=== PATIENT | female | born 1945 | race Caucasian/White ===

== ENCOUNTER 2016-03-23 07:01 | Day surgery (SDC) | payer MEDICARE, OTHER ==
[~2016-03-23] VITALS: Ht 162.6 cm; Wt 63.6 kg
[~2016-03-23 07:01] MED LIST: LACTATED RINGERS 1,000 ML IV SCH; SODIUM CHLORIDE FLUSH 3 ML SYR IV PRN
[2016-03-23 07:14] VITALS: BP 135/73
[2016-03-23] MEDS ORDERED: BUPIVACAINE/EPINEPHRINE 0.5%-1:200,000 (MARCAINE) 30 ML VIAL INJ ONE (07:33)
[2016-03-23] MEDS ORDERED: LIDOCAINE/EPINEPHRINE 1% 1:100,000 (XYLOCAINE) 30 ML VIAL INJ ONE (07:33)
[2016-03-23] MEDS ORDERED: ALFENTANIL 500 MCG/ML (ALFENTA) 5 ML AMP IV ONE (08:11)
[2016-03-23] MEDS ORDERED: MIDAZOLAM 2 MG/2 ML (VERSED) VIAL ONE (08:11)
[2016-03-23] MEDS ORDERED: PROPOFOL 20 ML IV ONE ×2 (08:12)
[2016-03-23] MEDS ORDERED: ONDANSETRON 2 MG/ML (Z0FRAN) 2 ML VIAL ONE (08:31)
[2016-03-23] MEDS ORDERED: diphenhydrAMINE 50 MG/ML INJ (BENADRYL) ONE (08:32)
[2016-03-23 09:39] VITALS: BP 145/65
[2016-03-23] MEDS ORDERED: ONDANSETRON 2 MG/ML (Z0FRAN) 2 ML VIAL IV PRN (11:55)
[2016-03-23] MEDS ORDERED: METOCLOPRAMIDE 10 MG/2 ML (REGLAN) VIAL IV PRN (11:55)
[2016-03-23] MEDS ORDERED: morphine INJ 4 MG/ML 1 ML SYRINGE IV PRN (11:55)
[2016-03-23] MEDS ORDERED: KETOROLAC 30 MG/ML (TORADOL) 1 ML VIAL IV PRN (11:55)
== END 2016-03-23 09:45 | disposition home or self-care (01) ==
LOC: ASC 07:01
PROVIDERS: ATTEND Surgery
DX: N60.32 Fibrosclerosis of left breast (principal); N64.1 Fat necrosis of breast; Z85.3 Personal history of malignant neoplasm of breast; E03.9 Hypothyroidism, unspecified; Z79.82 Long term (current) use of aspirin
CPT/HCPCS: 19120; 88307; 88311; J1200; J2250; J7120

== ENCOUNTER → 2016-06-07 | Outpatient (CLI) | payer MEDICARE, OTHER ==
[~2016-06-07] MED LIST changes: +ALEN35TA32 PO; +ASPI-860 PO; +CALC500T55 PO; +FLUO40CA PO; +HCT25T PO; -LACTATED RINGERS 1,000 ML IV SCH; +LVT.025T PO; -SODIUM CHLORIDE FLUSH 3 ML SYR IV PRN; +ZOLP5TAB PO; +anti depressant
[2016-06-07 11:02] LABS: MEAN CORPUSCULAR HEMOGLOBIN 29.2 PG (26.0-34.0); MEAN CORPUSCULAR HGB CONC 31.8 g/dL (31.0-37.0); MEAN PLATELET VOLUME 9.7 FL (6.0-9.5); WHITE BLOOD COUNT 4.77 10^3uL (4.0-11.0)
[2016-06-07 11:12] LABS: ALBUMIN 4.2 g/dL (3.4-5.0); ANION GAP 15.7 MEQ/L (3-15); CALCULATED IONIZED CALCIUM 3.8 mg/dL (3.8-4.6); TOTAL PROTEIN 7.2 g/dL (6.4-8.5)
== END ==
LOC: LAB 10:36
PROVIDERS: ATTEND Internal Medicine Hematology & Oncology
DX: C50.212 Malignant neoplasm of upper-inner quadrant of left female breast (principal)
CPT/HCPCS: 36415; 80053; 85027

== ENCOUNTER → 2016-06-08 | Outpatient (CLI) | payer MEDICARE, OTHER ==
--- NOTE | 2016-06-08 11:57 | Diagnostic Imaging Report ---
PROCEDURE: CT chest pelvis with and abdomen with and without contrast. TECHNIQUE: Multiple contiguous axial images were obtained through the chest, abdomen and pelvis after uneventful bolus administration of intravenous contrast. Precontrast acquisitions were acquired through the abdomen. INDICATION: Breast cancer. COMPARISON: 07/06/2015. Thorax: Change has occurred in the left breast since the prior exam. A 4.5 x 2.5 x 3.2-cm mass is now visible. The mass appears to be cystic and has a CT number of 9. The calcification and mass previously present at that region is no longer present. The axillary lymph nodes remain negative. Surgical clips are seen on the left from previous axillary dissection. Great vessels are negative. Mediastinal and hilar lymph nodes are negative. Lung parenchyma is negative for mass. A small area of focal scarring or atelectasis persists in the lingula. There is no pleural or pericardial effusion. No osteolytic or osteoblastic lesion is seen. IMPRESSION: 1. Cystic mass in the left breast, most likely seroma. 2. Linear scarring in the lingula stable from prior. Abdomen/ pelvis: The liver is negative. The spleen is negative. No adrenal lesions are seen. The pancreas is negative. Kidneys are negative for hydronephrosis, mass, or other lesion. No pathologically enlarged lymph nodes are identified. Aorta was tortuous and without aneurysm or other lesion. No pelvic mass or lymphadenopathy is identified. Uterus is surgically absent. Urinary bladder is negative. Facet arthropathy is present in the spine. Focal sclerosis is present in the inferior lateral right sacrum near the SI joint and to a lesser extent on the left. On the left this is similar to prior exam. On the right it appears greater than on the prior exam. There is no sacroiliac joint erosion. Mild lumbar scoliosis is present. IMPRESSION: 1. Bilateral inferior lateral sacral sclerosis greater on the right and new on the right since prior exam. Suspect benign disease rather than metastasis. Consider bone scan. 2. Otherwise negative abdomen and pelvis. Dictated by: Dictated on workstation # [id number]
== END ==
LOC: RAD 08:00
PROVIDERS: ATTEND Internal Medicine Hematology & Oncology
DX: C50.212 Malignant neoplasm of upper-inner quadrant of left female breast (principal)
CPT/HCPCS: 71260; 74178; Q9967